=== PATIENT | female | born 1995 | race Caucasian/White ===

== ENCOUNTER 2018-05-01 10:21 | Outpatient (CLI) | payer OTHER ==
[2018-05-01 11:31] LABS: APPEARANCE,URINE CLOUDY; BILIRUBIN,URINE NEGATIVE (NEGATIVE); COLOR,URINE YELLOW; GLUCOSE, URINE NEGATIVE (NEGATIVE); KETONES,URINE NEGATIVE (NEGATIVE); LEUKOCYTE ESTERASE,URINE MODERATE (NEGATIVE); NITRITE,URINE NEGATIVE (NEGATIVE); PROTEIN,URINE 100 mg/dL (NEGATIVE); URINE SPECIFIC GRAVITY 1.017; UROBILINOGEN,URINE NEGATIVE mg/dL (<2.0)
[2018-05-01 11:47] LABS: ABSOLUTE LYMPHOCYTES (AUTO) 1.7 10^3/uL (0.5-4.7); ABSOLUTE MONOCYTES (AUTO) 0.8 10^3/uL (0.1-1.4); ABSOLUTE NEUT (AUTO) 7.7 10^3/uL (1.7-8.2); BASOPHILS % (AUTO) 0.2 % (0-2); EOSINOPHILS % (AUTO) 0.3 % (0-6); HEMATOCRIT 36.8 % (36.0-47.0); HEMOGLOBIN 12.3 g/dL (12.0-15.5); LYMPHOCYTES % (AUTO) 16.8 % (13-45); MEAN CORPUSCULAR HEMOGLOBIN 28.2 pg (27.0-33.4); MEAN CORPUSCULAR HGB CONC 33.3 g/dL (32.0-36.0); MEAN CORPUSCULAR VOLUME 85 fl (80-97); MONOCYTES % (AUTO) 7.9 % (3-13); PLATELET COUNT 187 10^3/uL (150-450); RED BLOOD COUNT 4.35 10^6/uL (3.72-5.28); RED CELL DISTRIBUTION WIDTH 19.6 % (11.5-14.0); SEGMENTED NEUTROPHILS % (AUTO) 74.8 % (42-78); TOTAL CELLS COUNTED % (AUTO) 100 %; WHITE BLOOD COUNT 10.3 10^3/uL (4.0-10.5)
[2018-05-01 11:47] LABS: UR PRO/CREAT RATIO RESULT 0.8 mg/mg (0.0-0.2); URINE CREATININE 84.3 mg/dL (16-327); URINE PROTEIN 71.5 mg/dL (<12)
[2018-05-01 11:55] LABS: URINE AMPHETAMINES SCREEN NEGATIVE; URINE BARBITURATES SCREEN NEGATIVE; URINE BENZODIAZEPINES SCREEN NEGATIVE; URINE COCAINE SCREEN NEGATIVE; URINE MARIJUANA (THC) SCREEN NEGATIVE; URINE METHADONE SCREEN NEGATIVE; URINE PHENCYCLIDINE SCREEN NEGATIVE
[2018-05-01 12:16] LABS: ALANINE AMINOTRANSFERASE 18 U/L (9-52); ALBUMIN 3.2 g/dL (3.5-5.0); ALKALINE PHOSPHATASE 136 U/L (38-126); ANION GAP 13 (5-19); ASPARTATE AMINO TRANSFERASE 21 U/L (14-36); BILIRUBIN,DIRECT 0.2 mg/dL (0.0-0.4); BILIRUBIN,TOTAL 0.2 mg/dL (0.2-1.3); BLOOD UREA NITROGEN 8 mg/dL (7-20); CALCIUM 9.3 mg/dL (8.4-10.2); CARBON DIOXIDE 20 mmol/L (22-30); CHLORIDE 106 mmol/L (98-107); GLUCOSE 93 mg/dL (75-110); POTASSIUM 4.2 mmol/L (3.6-5.0); SODIUM 138.5 mmol/L (137-145)
[2018-05-01 12:17] LABS: TOTAL PROTEIN 5.8 g/dL (6.3-8.2); URIC ACID 5.2 mg/dL (2.5-6.2)
--- NOTE | 2018-05-01 13:36 | Non Stress Test Report ---
Non Stress Test Datetime Report Generated by CPN: 05/01/2018 13:35 DEMOGRAPHIC EGA NST: 40.5 INDICATION Indication for Study: Ordered by Provider Indication for Study (NST) Other: REPEAT NST VITAL SIGNS Temperature - NST: 98.1 Pulse - NST: 87 RESP - NST: 16 NBPSYS NST: 124 NBPDIA NST: 84 MONITORING Monitor Explained: Monitor Explained; Test Explained; Patient Verbalized Understanding Time on Monitor: 05/01/2018 10:35 Time off Monitor: 05/01/2018 13:02 NST Duration: 147 NST INTERVENTIONS NST Interventions: None Physician Notified NST: SHARMA BABY A: [id number] BABY A Movement : Present Contraction Frequency : 5-6 FHR Baseline : 120 Accelerations : 15X15 Decelerations : None Variability : Moderate 6-25bpm NST Review: Meets Criteria for Reactive NST NST Review and Verified By : TRISTA DUKE RN NST Results: Reactive NST REPORT Report Trigger: Send Report
[2018-05-01 14:30] LABS: LDH 471 U/L (313-618)
== END 2018-05-01 13:20 | disposition home or self-care (01) ==
LOC: LC 10:21
PROVIDERS: ATTEND Student in an Organized Health Care Education/Training Program
PROC: 4A1HXCZ Monitoring of Products of Conception, Cardiac Rate, External Approach (ICD-10-PCS; principal; 2018-05-01)
DX: O14.93 Unspecified pre-eclampsia, third trimester (principal); O48.0 Post-term pregnancy; Z3A.40 40 weeks gestation of pregnancy
CPT/HCPCS: 36415; 59025; 80053; 80307; 81001; 82570; 83615; 84156; 84550; 85025

== ENCOUNTER 2018-05-02 13:35 | Inpatient (IN) | payer OTHER ==
[2018-05-02 14:58] LABS: APPEARANCE,URINE CLOUDY; BILIRUBIN,URINE NEGATIVE (NEGATIVE); COLOR,URINE YELLOW; GLUCOSE, URINE NEGATIVE (NEGATIVE); KETONES,URINE NEGATIVE (NEGATIVE); LEUKOCYTE ESTERASE,URINE MODERATE (NEGATIVE); NITRITE,URINE NEGATIVE (NEGATIVE); PROTEIN,URINE 100 mg/dL (NEGATIVE); URINE SPECIFIC GRAVITY 1.015; UROBILINOGEN,URINE NEGATIVE mg/dL (<2.0)
[2018-05-02 15:04] LABS: URINE AMPHETAMINES SCREEN NEGATIVE; URINE BARBITURATES SCREEN NEGATIVE; URINE BENZODIAZEPINES SCREEN NEGATIVE; URINE COCAINE SCREEN NEGATIVE; URINE MARIJUANA (THC) SCREEN NEGATIVE; URINE METHADONE SCREEN NEGATIVE; URINE PHENCYCLIDINE SCREEN NEGATIVE
--- NOTE | 2018-05-02 17:00 | Admission Physical ---
Datetime Report Generated by CPN: 05/02/2018 16:59 CURRENT ADMISSION Chief Complaint: Signs/Symptoms Gestational HTN Indication for Induction: PreEclampsia Admit Impression : Term, Intrauterine ; Induction of Labor Admit Plan: Admit to Unit; Initiate Labor Induction Protocol ALLERGIES Medication Allergies: No Medication Allergies: No Known Allergies (05/02/2018) Latex: No Latex Allergies OBSTETRICAL HISTORY EDC: 04/26/2018 00:00 : 1 Para: 0 Term: 0 : 0 SAB: 0 IAB: 0 Ectopic: 0 Livin Cesareans: 0 VBACs: 0 Multiple Births: 0 Gestational Diabetes: No Rh Sensitization: No Incompetent Cervix: No LYUBOV: No Infertility: No ART Treatment: No Uterine Anomaly: No IUGR: No Hx Previous C/S: No Macrosomia: No Hx Loss/Stillborn: No PIH: No Hx : No Placenta Previa/Abruption: No Depression/PP Depression: No PTL/PROM: No Post Hemorrhage: No Current Procedures: Ultrasound; NST Obstetrical History Comments: G1 current SEE RECORDS Alcohol: No Marijuana : No Cocaine: No Other Illicit Drugs: No MEDICAL HISTORY Diabetes: No Blood Transfusion: No Pulmonary Disease (Asthma, TB): No Breast Disease: No Hypertension: No Sweat Box Attendant Surgery: No Heart Disease: No Hosp/Surgery: No Autoimmune Disorder: No Anesthetic Complications: No Kidney Disease: No Abnormal Pap Smear: No Neuro/Epilepsy: No Psychiatric Disorders: No Other Medical Diseases: No Hepatitis/Liver Disease: No Significant Family History: No Varicosities/Phlebitis: No Trauma/Violence : No Thyroid Dysfunction: No INFECTIOUS HISTORY Gonorrhea: No Genital Herpes: No Chlamydia: No Tuberculosis: No Syphilis: No Hepatitis: No HIV/AIDS Exposure: No Rash or Viral Illness: No HPV: No PHYSICAL EXAM General: Normal HEENT: Normal Neurologic: Normal Thyroid: Normal Heart: Normal Lungs: Normal Breast: Normal Back: Normal Abdomen: Normal Genitourinary Exam: Normal Extremities: Normal DTRs: Normal Pelvic Type: Adequate Vital Signs: Reviewed VAGINAL EXAM Dilatation: 3 Effacement: 90 Station: -1 FETUS A EGA: 40.6 Monitoring: External US FHR- Baseline: 150 Variability: Moderate 6-25bpm Accelerations: 15X15 Decelerations: None FHR Category: Category I Estimated Weight (gm): 3900 Presentation: Vertex Admit Comment: Pre E and post term. Favorable cervix. will admit for induction with pitocin. PLANS FOR LABOR AND DELIVERY Labor and Delivery: None Pain Management: Epidural Feeding Preference: Formula Benefit of Breast Feed Discussed: Yes Circumcision: Yes INFORMED CONSENT Signature: with User ID: [email or web address]
[2018-05-02] MEDS ORDERED: PENICILLIN G-K 5 MILLION UNIT VIAL ONE ×2 (17:38→22:14)
[2018-05-02] MEDS ORDERED: RINGERS SOLUTION,LACTATED 1,000 ML IV ONE (17:48)
[2018-05-02] MEDS ORDERED: RINGERS SOLUTION,LACTATED 1,000 ML IV PRN (17:48)
[2018-05-02] MEDS ORDERED: PENICILLIN G POTASSIUM 5,000,000 UNIT in DEXTROSE 5%-WATER 100 ML IV ONE (17:48)
[2018-05-02] MEDS ORDERED: OXYTOCIN/NORMAL SALINE 20 UNIT/1,000 ML RTUINJ IV PRN (17:51)
[2018-05-02] MEDS ORDERED: NALBUPHINE HCL INJ 10 MG/1 ML AMPULE INJ ONE (21:56)
[2018-05-02] MEDS ORDERED: PROMETHAZINE HCL INJ 25 MG/1 ML VIAL IV ONE (21:56)
[2018-05-02] MEDS ORDERED: PROMETHAZINE HCL INJ 25 MG/1 ML VIAL ONE (21:58)
[2018-05-02] MEDS ORDERED: NALBUPHINE HCL INJ 10 MG/1 ML AMPULE ONE (21:58)
[2018-05-02] MEDS: PENICILLIN G POTASSIUM 2,500,000 UNIT in DEXTROSE 5%-WATER 50 ML IV SCH (22:17)
[2018-05-02] MEDS ORDERED: OXYTOCIN/NORMAL SALINE 20 UNIT/1,000 ML RTUINJ ONE (22:31)
[2018-05-02] MEDS ORDERED: LIDOCAINE 1% INJ-PF (10 MG/ML) 30 ML SDV ONE (22:31)
[2018-05-02] MEDS ORDERED: MISOPROSTOL 0.2 MG TABLET ONE (22:31)
[2018-05-02] MEDS ORDERED: FENTANYL CITRATE INJ/PF 100 MCG/2 ML AMPUL ONE (23:52)
[2018-05-02] MEDS ORDERED: PHENYLEPHRINE HCL INJ/PF 10 MG/1 ML SDV ONE (23:53)
[2018-05-02] MEDS ORDERED: FENTANYL/BUPIVACAINE/NS/PF 300 MCG/150 ML RTUINJ EPI ONE (23:53)
[2018-05-02] MEDS ORDERED: EPHEDRINE SULFATE INJ 50 MG/1 ML AMPULE ONE (23:53)
[2018-05-02] MEDS ORDERED: BUPIVACAINE HCL 0.25 % INJ/PF (2.5 MG/1 ML) 30 ML VIAL ONE (23:53)
[2018-05-03 00:49] LABS: ALANINE AMINOTRANSFERASE 23 U/L (9-52); ALBUMIN 3.3 g/dL (3.5-5.0); ALKALINE PHOSPHATASE 150 U/L (38-126); ANION GAP 7 (5-19); ASPARTATE AMINO TRANSFERASE 21 U/L (14-36); BILIRUBIN,DIRECT 0.3 mg/dL (0.0-0.4); BILIRUBIN,TOTAL 0.3 mg/dL (0.2-1.3); BLOOD UREA NITROGEN 9 mg/dL (7-20); CARBON DIOXIDE 25 mmol/L (22-30); CHLORIDE 106 mmol/L (98-107); GLUCOSE 82 mg/dL (75-110); LDH 408 U/L (313-618); POTASSIUM 4.2 mmol/L (3.6-5.0); URIC ACID 5.5 mg/dL (2.5-6.2)
[2018-05-03 01:09] LABS: ABSOLUTE BASOPHILS # (AUTO) 0.1 10^3/uL (0.0-0.2); ABSOLUTE EOSINOPHILS # (AUTO) 0.1 10^3/uL (0.0-0.6); ABSOLUTE LYMPHOCYTES (AUTO) 1.8 10^3/uL (0.5-4.7); ABSOLUTE MONOCYTES (AUTO) 0.8 10^3/uL (0.1-1.4); ABSOLUTE NEUT (AUTO) 8.3 10^3/uL (1.7-8.2); BASOPHILS % (AUTO) 0.5 % (0-2); EOSINOPHILS % (AUTO) 0.7 % (0-6); HEMATOCRIT 37.4 % (36.0-47.0); HEMOGLOBIN 12.3 g/dL (12.0-15.5); LYMPHOCYTES % (AUTO) 16.5 % (13-45); MEAN CORPUSCULAR HEMOGLOBIN 28.3 pg (27.0-33.4); MEAN CORPUSCULAR HGB CONC 32.9 g/dL (32.0-36.0); MEAN CORPUSCULAR VOLUME 86 fl (80-97); MONOCYTES % (AUTO) 6.9 % (3-13); PLATELET COUNT 201 10^3/uL (150-450); RED BLOOD COUNT 4.35 10^6/uL (3.72-5.28); SEGMENTED NEUTROPHILS % (AUTO) 75.4 % (42-78); TOTAL CELLS COUNTED % (AUTO) 100 %
[2018-05-03] MEDS ORDERED: LIDOCAINE 1.5%/EPINEPHRINE INJ-PF 30 ML SDV ONE (01:37)
[2018-05-03] MEDS ORDERED: PENICILLIN G-K 5 MILLION UNIT VIAL ONE (02:27)
[2018-05-03] MEDS: PENICILLIN G POTASSIUM 2,500,000 UNIT in DEXTROSE 5%-WATER 50 ML IV SCH ×3 (02:30→09:32)
--- NOTE | 2018-05-03 06:09 | Delivery Summary ---
Del Sum A-C Datetime Report Generated by CPN: 05/03/2018 06:09 DELIVERY PERSONNEL DELIVERY PERSONNEL: [id number] Delivery Doctor:: Magda Millan MD Labor and Delivery Nurse:: Lala Ojeda RNad operations intern Nurse:: Georgia Weeks RN Construction Engineer/COMPUTED TOMOGRAPHY TECHNOLOGIST: Donna Ross, ST MATERNAL INFORMATION Delivery Anesthesia: Epidural Medications After Delivery: Pitocin Drip 20 Units/1000ml NSS Estimated Blood Loss (ml): 400 Maternal Complications: None LABOR SUMMARY EDC: 04/26/2018 00:00 No. Babies in Womb: 1 Attempted: No Labor Anesthesia: Epidural LABOR INFORMATION Reason for Induction: Pre-Eclampsia Onset of Labor: 05/03/2018 01:50 Complete Dilatation: 05/03/2018 04:09 Oxytocin: Induction Group B Beta Strep: Positive Antibiotics # of Doses: 3 Antibiotics Time of Last Dose: 023 Name of Antibiotic Given: PCN Steroids Given: None Reason Steroids Not Administered: Not Applicable MEMBRANES Membranes Rupture Method: Spontaneous Rupture of Membranes: 05/03/2018 02:51 Length of Rupture (hr): 2.45 Amniotic Fluid Color: Clear Amniotic Fluid Amount: Large Amniotic Fluid Odor: Normal STAGES OF LABOR Stage 1 hr: 2 Stage 1 min: 19 Stage 2 hr: 1 Stage 2 min: 9 Stage 3 hr: 0 Stage 3 min: 3 Total Time in Labor hr: 3 Total Time in Labor min: 31 VAGINAL DELIVERY Episiotomy: None Laceration #1: Perineal; Vaginal Laceration Extension #1: Third Degree, IIIa (Less than 50 percent ext anal sphincter thickness torn) Laceration Repair: Yes Sponge Count Correct: N/A Sharps Count Correct: Yes CSECTION DELIVERY Primary Indication: N/A Secondary Indication: N/A CSection Incidence: N/A Labor: N/A Elective: N/A CSection Incision: N/A BABY A INFORMATION Delivery Date/Time: 05/03/2018 05:18 Method of Delivery: Vaginal Born in Route : No : N/A Forceps: N/A Vacuum Extraction: N/A Shoulder Dystocia : No PRESENTATION/POSITION BABY A Presentation: Cephalic Cephalic Presentation: Vertex Breech Presentation: N/A PLACENTA INFORMATION BABY A Placenta Delivery Time : 05/03/2018 05:21 Placenta Method of Delivery: Spontaneous Placenta Status: Delivered SCORES BABY A Heart Rate 1 min: >100 bpm Resp Effort 1 min: Good Cry Reflex Irritability 1 min: Cough or Sneeze or Pulls Away Muscle Tone 1 min: Active Motion Color 1 min: Blue/Pale Resuscitation Effort 1 min: Tactile Stimulation SCORE 1 MIN: 8 Heart Rate 5 min: >100 bpm Resp Effort 5 min: Good Cry Reflex Irritability 5 min: Cough or Sneeze or Pulls Away Muscle Tone 5 min: Active Motion Color 5 min: Body [place], Extremities Blue Resuscitation Effort 5 min: Tactile Stimulation SCORE 5 MIN: 9 INFANT INFORMATION BABY A Gestational Age at Delivery: 41.0 Gestational Status: Late Term- 41- 41.6 Weeks Outcome : Liveborn Infant Condition : Stable Infant Sex: Male IDENTIFICATION BABY A Infant Verification Date/Time: 05/03/2018 05:51 ID Band Number: [id number] Mother's Name Verified: Yes Infant RN Verifying Infant: SEnmanuel Alfaro, RNC _ EEnmanuel Weeks, RN WEIGHT/LENGTH BABY A Infant Birthweight (gm): 3450 Infant Weight (lb): 7 Weight (oz): 10 Infant Length (in): 21.00 Length (cm): 53.34 CORD INFORMATION BABY A No. Cord Vessels: 3 Nuchal Cord : N/A Cord Blood Taken: Yes-For Storage (Mom's Blood type +) ASSESSMENT BABY A Infant Complications: Multiple Late Decels Physical Findings at Delivery: Molding of the Head Respirations: Appears Normal Skin to Skin: Yes Detective Lieutenant/ALS Called : No Infant Care By: Maryjo Weeks RN Transferred To: Remains with Mother BABY B INFORMATION : N/A
[2018-05-03] MEDS ORDERED: ACETAMINOPHEN 650 MG SUPP.RECT PR PRN (06:12)
[2018-05-03] MEDS ORDERED: MEASLES,MUMPS&RUBELLA VACC/PF 0.5 ML VIAL SUBCUT PRN (06:12)
[2018-05-03] MEDS ORDERED: MAGNESIUM HYDROXIDE SUSP 30 ML UDCUP PO PRN (06:12)
[2018-05-03] MEDS ORDERED: DIPHENHYDRAMINE HCL 25 MG CAPSULE PO PRN (06:12)
[2018-05-03] MEDS ORDERED: OXYTOCIN/NORMAL SALINE 20 UNIT/1,000 ML RTUINJ IV PRN (06:12)
[2018-05-03] MEDS ORDERED: PSEUDOEPHEDRINE HCL 30 MG TABLET PO PRN (06:12)
[2018-05-03] MEDS ORDERED: ZOLPIDEM TARTRATE 5 MG TABLET PO PRN (06:12)
[2018-05-03] MEDS ORDERED: NA PHOS,M-B/NA PHOS,DI-BA (ADULT) 133 ML ENEMA PR PRN (06:12)
[2018-05-03] MEDS ORDERED: PROMETHAZINE HCL 25 MG SUPP.RECT PR PRN (06:12)
[2018-05-03] MEDS ORDERED: PROMETHAZINE HCL INJ 25 MG/1 ML VIAL IV PRN (06:12)
[2018-05-03] MEDS ORDERED: GLYCERIN/WITCH HAZEL LEAF 1 EACH MED..PAD TP PRN (06:12)
[2018-05-03] MEDS ORDERED: DIPH/PERTUSS(ACELL)/TETANUS VAC/PF 0.5 ML SYR (>=10YO) IM PRN (06:12)
[2018-05-03] MEDS ORDERED: BENZOCAINE/MENTHOL AEROSOL SPRAY 56 ML TOP PRN (06:12)
[2018-05-03] MEDS ORDERED: ACETAMINOPHEN WITH CODEINE #3 TABLET PO PRN ×2 (06:12)
[2018-05-03] MEDS ORDERED: PROMETHAZINE HCL 25 MG TABLET PO PRN (06:12)
[2018-05-03] MEDS ORDERED: DIBUCAINE 1% OINTMENT 28 GM TP PRN (06:12)
[2018-05-03] MEDS ORDERED: IBUPROFEN 800 MG TABLET ONE (06:57)
[2018-05-03] MEDS ORDERED: IBUPROFEN 800 MG TABLET PO ONE (07:01)
--- NOTE | 2018-05-03 07:42 | Warning Signs in Babies ---
VOD Warning Signs Datetime Report Generated by [facility]: 05/03/2018 07:42 VOD#[id number] -Warning Signs in Babies: Viewed with Parent(s)/Family (05/03/2018 07:41:Odalys Hummel RN)
[2018-05-03] MEDS ORDERED: ACETAMINOPHEN 325 MG TABLET ONE (08:53)
[2018-05-03] MEDS ORDERED: SENNOSIDES/DOCUSATE 8.6-50 MG 1 EACH TABLET ONE (09:35)
[2018-05-03] MEDS ORDERED: PRENATAL VITAMIN W DHA CAPSULE PO ONE (09:35)
[2018-05-03] MEDS ORDERED: FERROUS SULFATE 325 MG TABLET PO ONE (09:36)
[2018-05-03] MEDS ORDERED: FAMOTIDINE 20 MG TABLET ONE (09:36)
[2018-05-03] MEDS ORDERED: DOCUSATE SODIUM 100 MG CAPSULE ONE (09:36)
[2018-05-03] MEDS: FAMOTIDINE 20 MG TABLET PO SCH ×2 (09:37→22:04)
[2018-05-03] MEDS: PRENATAL VITAMIN W DHA CAPSULE PO SCH (09:38)
[2018-05-03] MEDS: SENNOSIDES/DOCUSATE 8.6-50 MG 1 EACH TABLET PO SCH (09:38)
[2018-05-03] MEDS: DOCUSATE SODIUM 100 MG CAPSULE PO SCH ×2 (09:38→17:56)
[2018-05-03] MEDS: FERROUS SULFATE 325 MG TABLET PO SCH ×2 (09:39→17:56)
[2018-05-03] MEDS ORDERED: ACETAMINOPHEN 325 MG TABLET PO ONE (10:00)
[2018-05-03] MEDS: IBUPROFEN 800 MG TABLET PO SCH ×2 (14:12→22:02)
[2018-05-04] MEDS: IBUPROFEN 800 MG TABLET PO SCH ×3 (05:41→21:53)
[2018-05-04 06:57] LABS: HEMATOCRIT 30.9 % (36.0-47.0); HEMOGLOBIN 10.3 g/dL (12.0-15.5); MEAN CORPUSCULAR HEMOGLOBIN 28.4 pg (27.0-33.4); MEAN CORPUSCULAR HGB CONC 33.3 g/dL (32.0-36.0); MEAN CORPUSCULAR VOLUME 85 fl (80-97); PLATELET COUNT 146 10^3/uL (150-450); RED BLOOD COUNT 3.63 10^6/uL (3.72-5.28); RED CELL DISTRIBUTION WIDTH 19.8 % (11.5-14.0)
[2018-05-04] MEDS: PRENATAL VITAMIN W DHA CAPSULE PO SCH (09:38)
[2018-05-04] MEDS: SENNOSIDES/DOCUSATE 8.6-50 MG 1 EACH TABLET PO SCH (09:39)
[2018-05-04] MEDS: FERROUS SULFATE 325 MG TABLET PO SCH ×2 (09:39→17:39)
[2018-05-04] MEDS: DOCUSATE SODIUM 100 MG CAPSULE PO SCH ×2 (09:39→17:39)
[2018-05-04] MEDS: FAMOTIDINE 20 MG TABLET PO SCH ×2 (09:39→21:52)
--- NOTE | 2018-05-04 09:50 | PDOC PROGRESS REPORT ---
Subjective-OB Progress Note for:: 05/04/18 Subjective: Pt doing well, no concerns. She reports light bleeding, regular diet and voiding without difficulty. Physical Exam (OB) Vital Signs: Temp Pulse Resp BP Pulse Ox 97.8 F 86 15 116/72 99 05/04/18 08:20 05/04/18 08:20 05/04/18 08:20 05/04/18 08:20 05/04/18 08:20 Intake & Output 05/03/18 05/04/18 05/05/18 06:59 06:59 06:59 Weight 85.3 kg - PIH/Pre-Eclampsia Clonus: Negative Headache: Absent Epigastric Pain: No Visual Changes: No - Abdomen Description: Soft Hernia Present: No Fundal Description: Firm, Midline Fundal Height: u/u - u/2 Objective-Diagnostic Laboratory: 05/04/18 06:36 05/02/18 16:20 05/04/18 06:36 WBC 12.0 H RBC 3.63 L Hgb 10.3 L Hct 30.9 L MCV 85 MCH 28.4 MCHC 33.3 RDW 19.8 H Plt Count 146 L Assessment and Plan(PN) - Assessment and Plan (1) Pre-eclampsia Qualifiers: Trimester: third trimester Qualified Code(s): O14.93 - Unspecified pre- eclampsia, third trimester Is this a current diagnosis for this admission?: Yes (2) (spontaneous vaginal delivery) Is this a current diagnosis for this admission?: Yes - Time Spent with Patient Time with patient: Less than 15 minutes Medications reviewed and adjusted accordingly: Yes - Disposition Anticipated Discharge: Home Within: within 24 hours
[2018-05-05] MEDS: IBUPROFEN 800 MG TABLET PO SCH ×2 (05:50→13:23)
[2018-05-05] MEDS: FERROUS SULFATE 325 MG TABLET PO SCH (09:55)
[2018-05-05] MEDS: DOCUSATE SODIUM 100 MG CAPSULE PO SCH (09:55)
[2018-05-05] MEDS: FAMOTIDINE 20 MG TABLET PO SCH (09:55)
[2018-05-05] MEDS: SENNOSIDES/DOCUSATE 8.6-50 MG 1 EACH TABLET PO SCH (09:55)
[2018-05-05] MEDS: PRENATAL VITAMIN W DHA CAPSULE PO SCH (09:56)
--- NOTE | 2018-05-05 13:08 | PDOC PROGRESS REPORT ---
Subjective-OB Progress Note for:: 05/05/18 Subjective: dec lochia, Rh positive, bottle feeding, Considering IUD for pp contraception, GBS pos rec'd 3 doses PCN, Indxn for PreE, + flatus, no BM, Rubella Immune Physical Exam (OB) Vital Signs: Temp Pulse Resp BP Pulse Ox 98.1 F 80 15 119/69 99 05/05/18 07:55 05/05/18 07:55 05/05/18 07:55 05/05/18 07:55 05/05/18 07:55 - General General Appearance: Appears well, Alert In distress: None - PIH/Pre-Eclampsia DTR's: 1 + Clonus: Negative Headache: Absent Epigastric Pain: No Visual Changes: No - Episiotomy/Laceration Site Condition: Well Approximated Episiotomy/Laceration Note: pain well controlled - Lochia Lochia Amount: Scant < 10 ml Lochia Color: Rubra/Red - Abdomen Description: Soft Hernia Present: No Flatus Presence: Present Stool: No Fundal Description: Firm, Midline Fundal Height: u/u - u/2 - HEENT Head: Normocephalic, Atraumatic - Respiratory Respiratory Status: No respiratory distress Chest Status: Nontender Breath sounds: Clear Chest Palpation: Normal - Cardiovascular Rhythm: Regular Heart Sounds: Normal auscultation, S1 appreciated, S2 appreciated - Abdominal Inspection: Normal Distension: No distension Tenderness: Nontender. negative: Tender Organomegaly: No organomegaly - Extremities Upper extremity: Normal inspection Lower extremities: Nontender Calf: Nontender - Psychological Associated symptoms: Normal affect - Skin Skin Temperature: Warm Skin Moisture: Dry Objective-Diagnostic Laboratory: 05/04/18 06:36 05/02/18 16:20 Assessment and Plan(PN) - Assessment and Plan (1) Obstetrical laceration, third degree Is this a current diagnosis for this admission?: Yes Plan: Will ensure pt has colace and pain meds for discharge. pericare reviewed. F/u in office in 1 -2wks for eval of healing. (2) (spontaneous vaginal delivery) Is this a current diagnosis for this admission?: Yes Plan: after IOL at 41wks for PreE. H/o GHTN. Doing well. No issues at this time. Routine pp care (3) Pre-eclampsia Qualifiers: Trimester: third trimester Qualified Code(s): O14.93 - Unspecified pre- eclampsia, third trimester Is this a current diagnosis for this admission?: Yes Plan: BPs normal. No needs for BP meds at this time. Denies SHEARER/blurry vision/RUQ pain at this time Plan:: Meets criteria for discharge at this time. - Time Spent with Patient Time with patient: Less than 15 minutes Medications reviewed and adjusted accordingly: Yes - Disposition Anticipated Discharge: Home Within: within 24 hours Disposition: Discharge to home
--- NOTE | 2018-05-05 13:19 | PDOC DISCHARGE SUMMARY ---
Final Diagnosis Discharge Date: 05/05/18 - Final Diagnosis (1) Obstetrical laceration, third degree Is this a current diagnosis for this admission?: Yes (2) (spontaneous vaginal delivery) Is this a current diagnosis for this admission?: Yes (3) Pre-eclampsia Is this a current diagnosis for this admission?: Yes Discharge Data - Discharge Medication Prescriptions: Acetaminophen with Codeine [Tylenol #3 Tablet] 2 each PO Q4HP PRN 7 Days #28 tablet PRN Reason: For Breakthrough Pain Benzocaine/Menthol [Dermoplast Aerosol Sweet Water 56 ml] 1 applic TOP PRN PRN 30 Days #1 can PRN Reason: For Pain Dibucaine 1% Ointment [Nupercainal 1% Oint 28 gm] 1 applic TP PRN PRN 30 Days # 1 tube PRN Reason: Docusate Sodium [Colace 100 mg Capsule] 100 mg PO BID 30 Days #60 capsule Ferrous Sulfate [Feosol 325 mg Tablet] 325 mg PO BID 60 Days #60 tablet Ibuprofen [Motrin 800 mg Tablet] 800 mg PO Q8 30 Days #90 tablet Home Medications: Vit/Iron Fum/Folic AC [ Tablet] 1 each PO DAILY 04/26/18 Acetaminophen with Codeine [Tylenol #3 Tablet] 2 each PO Q4HP PRN 7 Days #28 tablet 05/05/18 Benzocaine/Menthol [Dermoplast Aerosol Sweet Water 56 ml] 1 applic TOP PRN PRN 30 Days #1 can 05/05/18 Dibucaine 1% Ointment [Nupercainal 1% Oint 28 gm] 1 applic TP PRN PRN 30 Days # 1 tube 05/05/18 Docusate Sodium [Colace 100 mg Capsule] 100 mg PO BID 30 Days #60 capsule Ferrous Sulfate [Feosol 325 mg Tablet] 325 mg PO BID 60 Days #60 tablet Ibuprofen [Motrin 800 mg Tablet] 800 mg PO Q8 30 Days #90 tablet 05/05/18 Vit/Dha [ Multi + Dha Capsule] 1 cap PO DAILY capsule Reason(s) for Admission: Induction of Labor, PIH Procedures: NST, Ultrasound Intrapartum Procedure(s): Spontaneous Vaginal Delivery Complication(s): Laceration-Vaginal Laceration-Degree: 3rd - [place] Data Baby 1 Male at 1 minute: 8 at 5 minutes: 9 Weight: 3.459 kg Home with Mother: Yes Complications: No - Diagnosis Test Laboratory: Temp Pulse Resp BP Pulse Ox 99.1 F 87 16 138/95 H 97 05/05/18 12:38 05/05/18 12:38 05/05/18 12:38 05/05/18 12:38 05/05/18 12:38 05/02/18 05/02/18 05/04/18 13:50 16:20 06:36 RBC 4.35 3.63 L Hgb 12.3 10.3 L Hct 37.4 30.9 L Urine Opiates Screen NEGATIVE - Discharge information/Instructions Discharge Activity: Activity As Tolerated, Pelvic Rest Discharge Diet: As Tolerated Disposition: HOME, SELF-CARE Follow up with: [facility] in: 1 - F/u in [address] Millan for eval of 3rd degree laceration.
[2018-05-05 13:44] VITALS: BP 120/68
== END 2018-05-05 16:42 | disposition home or self-care (01) | DRG 775 ==
LOC: LC 13:35 → LR 16:06 → 2S 05-03 10:10
PROVIDERS: ADMIT Obstetrics & Gynecology; ATTEND Obstetrics & Gynecology
PROC: 4A1HXCZ Monitoring of Products of Conception, Cardiac Rate, External Approach (ICD-10-PCS; 2018-05-02)
PROC: 10E0XZZ Delivery of Products of Conception, External Approach (ICD-10-PCS; principal; 2018-05-03)
PROC: 0DQR0ZZ Repair Anal Sphincter, Open Approach (ICD-10-PCS; 2018-05-03)
PROC: 3E033VJ Introduction of Other Hormone into Peripheral Vein, Percutaneous Approach (ICD-10-PCS; 2018-05-03)
DX: O48.0 Post-term pregnancy (principal); O70.20 Third degree perineal laceration during delivery, unspecified; O14.94 Unspecified pre-eclampsia, complicating childbirth; O99.824 Streptococcus B carrier state complicating childbirth; Z3A.41 41 weeks gestation of pregnancy; Z37.0 Single live birth
CPT/HCPCS: 36415; 59025; 80053; 80307; 81001; 83615; 84550; 85025; 85027; 86592; 86850; 86900; 86901; J2300; J2370; J2540; J2550; J2590; J3010; J3490

== ENCOUNTER 2018-08-04 20:15 | Emergency (ER) | payer OTHER ==
[2018-08-04 20:41] VITALS: BP 126/75
--- NOTE | 2018-08-04 21:09 | ER Document Report ---
ED Medical Screen (RME) - General Chief Complaint: Finger Injury Stated Complaint: SWOLLEN FINGER Time Seen by Provider: 08/04/18 21:07 Notes: 23-year-old female patient has had swelling to the fingers due to her . Today is the first day she is put her rings back on an a while. She was at the movies when she noted that the finger was swelling in the ring for becoming tight. The engagement ring is fairly loose, but it is proximal to [place] ring which is a little more tight. It does move somewhat at this time. Distally there is a good bit of swelling. Patient will be sent to the back as soon as possible so they can start something like wrapping it with umbilical tape. TRAVEL OUTSIDE OF THE [place] IN LAST 30 DAYS: No - Related Data Allergies/Adverse Reactions: No Known Allergies Allergy (Verified 05/02/18 14:08) Past Medical History - Social History Chew tobacco use (# tins/day): No Frequency of alcohol use: None Drug Abuse: None Renal/ Medical History: Denies: Hx Peritoneal Dialysis Physical Exam - Vital signs Vitals: Temp Pulse Resp BP Pulse Ox 99.1 F 73 18 126/75 H 98 08/04/18 20:39 08/04/18 20:39 08/04/18 20:39 08/04/18 20:39 08/04/18 20:39 Course - Vital Signs Vital signs: Temp Pulse Resp BP Pulse Ox 99.1 F 73 18 126/75 H 98 08/04/18 20:39 08/04/18 20:39 08/04/18 20:39 08/04/18 20:39 08/04/18 20:39 Doctor's Discharge - Discharge Referrals: CODI DE GUZMAN MD [Primary Care Provider] - Follow up as needed
--- NOTE | 2018-08-04 22:47 | ER Document Report ---
ED Hand/Wrist Injury - General Chief Complaint: Finger Injury Stated Complaint: SWOLLEN FINGER Time Seen by Provider: 08/04/18 21:07 Mode of Arrival: Ambulatory Information source: Patient, Relative Notes: Patient is a 23-year-old female comes in emergency room with her with complaint of left ring finger swelling. Patient tells me she was in the [employer] and she felt a little discomfort in her fingers when she looked at her ring finger she noticed that it was somewhat swollen. She waited after the movies went home and attempted to remove the ring and was unable to do so. According to patient her tried soap and ice they have been tried the string maneuver with no success. That is when they decided to come to ER. Patient has no idea why her finger is swollen and she has had the rings for over 2-1/2 years with no problems. They are made of [place] and patient would like to remove them in his much of what whole pieces possible. I have explained to them that removing the rings we may try wire cutters or I got the string trick that I use that we may try first if she was open to that and willing to suffer a little bit of pain. stated he does not want bowl cutters used on the rings and he could not believe a hospital cannot provide sufficient ring cutters. Patient elected to have me try the string. Denies any known trauma to her finger she has no other past medical problems. And she does not smoke. TRAVEL OUTSIDE OF THE [place] IN LAST 30 DAYS: No - HPI Injury to: Ring finger Onset: Just prior to arrival Where: Public place Timing: Constant Quality of pain: Throbbing Severity: Moderate Pain Level: 3 Context: Swelling - Related Data Allergies/Adverse Reactions: No Known Allergies Allergy (Verified 05/02/18 14:08) Past Medical History - General Information source: Patient, Relative - Social History Smoking Status: Never Smoker Cigarette use (# per day): No Chew tobacco use (# tins/day): No Smoking Education Provided: No Frequency of alcohol use: None Drug Abuse: None Family History: Reviewed & Not Pertinent Patient has suicidal ideation: No Patient has homicidal ideation: No Renal/ Medical History: Denies: Hx Peritoneal Dialysis Review of Systems - Review of Systems Constitutional: No symptoms reported EENT: No symptoms reported Cardiovascular: No symptoms reported Respiratory: No symptoms reported Gastrointestinal: No symptoms reported Genitourinary: No symptoms reported Female Genitourinary: No symptoms reported Musculoskeletal: See HPI, Joint pain, Joint swelling Skin: See HPI, Change in color Hematologic/Lymphatic: No symptoms reported Neurological/Psychological: No symptoms reported -: Yes All other systems reviewed and negative Physical Exam - Vital signs Vitals: Temp Pulse Resp BP Pulse Ox 99.1 F 73 18 126/75 H 98 08/04/18 20:39 08/04/18 20:39 08/04/18 20:39 08/04/18 20:39 08/04/18 20:39 Interpretation: Normal - General General appearance: Alert, Anxious - Respiratory Respiratory status: No respiratory distress Chest status: Nontender Breath sounds: Normal - Cardiovascular Rhythm: Regular Heart sounds: Normal auscultation Murmur: No - Extremities General upper extremity: Tender, Edema. No: Normal color, Normal ROM, Normal strength, Normal temperature Hand: Tender, Swelling, Other - Examination of patient's left ring finger shows there to be some mild swelling. There is a patient has 2 rings on that finger. A very thin banded eternity type of a ring and the big ne ring. The deep part of the ring finger is slightly swollen. The knuckle appears to be somewhat enlarged. The distal portion looks normal in color. There is movement with the ring currently is not strangulating the finger yet. Although it does look like they have attempted to get the rings off themselves by irritating the tissue around it. Patient has full movement of the finger at this point. Has good cap refill in the nail bed of that finger. Course - Re-evaluation Re-evalutation: 08/05/18 01:30 I am going to use the course note as a procedure note. I took the quarter inch iodoform and I took approximately 4 feet of it and placed the 1 and under beneath the base of the ring on the palm side and taped it to the palm. I then began to wrap the iodoform around the front of the ring until I had it so snug and above the knuckle that I was able to tape off the other end. I did this with the aid of the nurse holding the fingers apart. Once I finished wrapping the knuckle very tight in multiple times with this iodoform I began by grabbing the taped into the palm holding onto the sides of the ring with my left hand and started to unwind by pulling the rope around the ring unwinding it around the knuckle. It became severely painful to the patient but she held on tight. After approximately a minute and 1/2-2 minutes of doing this and patient crying the ring finally snuck above the knuckle and I could slide it off. Doing all the while listening to the tell me that it would not work. Patient's rings came off at the same time there was no damage to the rings at all. Patient was happy was happy and we were able to send him home. The ring finger though it looked swollen still the color had returned to baseline normal. There appeared to be no long-term problem. - Vital Signs Vital signs: Temp Pulse Resp BP Pulse Ox 99.1 F 73 18 126/75 H 98 08/04/18 20:39 08/04/18 20:39 08/04/18 20:39 08/04/18 20:39 08/04/18 20:39 Discharge - Discharge Clinical Impression: Ring removal from finger, Foreign body removal Condition: Stable Disposition: HOME, SELF-CARE Additional Instructions: There is no handout for removing the ring. Your fingers going to be swollen and painful for the next 24-48 hours. Carry it above your heart ice it down ibuprofen for pain or discomfort. Please do not attempt to put the rings back on it to get them resized. Should you have any concerns or problems return to ER for recheck. Referrals: CODI DE GUZMAN MD [ACTIVE STAFF] - Follow up as needed
== END 2018-08-04 23:00 | disposition home or self-care (01) ==
LOC: ER 20:15
DX: S60.445A External constriction of left ring finger, initial encounter (principal); W49.04XA Ring or other jewelry causing external constriction, initial encounter; Y92.26 Movie house or cinema as the place of occurrence of the external cause
CPT/HCPCS: 99283; A6266